=== PATIENT | female | born 1985 | race Caucasian/White ===

== ENCOUNTER 2019-03-13 16:43 | Emergency (ER) | payer OTHER ==
--- NOTE | 2019-03-13 16:54 | ED Physician Documentation ---
PD HPI CHEST PAIN - Stated complaint Stated Complaint: CHEST PX/ARM NUMBNESS - Chief complaint Chief Complaint: Cardiac - History obtained from History obtained from: Patient - History of Present Illness Timing - onset: Other (This is a relatively healthy 33-year-old woman with several family members on both sides who of coronary disease, the earliest that was at 60. She is had 2 weeks of on and off chest pain radiating to both arms, sharp and burning sensation with more back soreness today. There is been no shortness of breath, pedal edema or calf pain. She has not traveled recently. She has a Mirena IUD in place, no other control. The start of it coincided with a diagnosis of cancer in her mother which may be causative she thinks. She has a history of preeclampsia necessitating antihypertensives but she is not on any blood pressure medication now.) Review of Systems Ten Systems: 10 systems reviewed and negative Constitutional: denies: Fever, Chills Cardiac: reports: Chest pain / pressure. denies: Palpitations, Pedal edema, Calf pain Respiratory: denies: Dyspnea, Cough PD PAST MEDICAL HISTORY - Past Medical History Past Medical History: Yes Cardiovascular: Hypertension (post preeclampsia/HTN) - Allergies Allergies/Adverse Reactions: Allergies Allergy/AdvReac Type Severity Reaction Status Date / Time codeine Allergy Emesis Verified 03/13/19 16:57 Sulfa (Sulfonamide Allergy Unknown Verified 03/13/19 16:57 Antibiotics) - Social History Does the pt have substance abuse?: No - Family History Family history: reports: Non contributory PD ED PE NORMAL - Vitals Vital signs reviewed: Yes - General General: Alert and oriented X 3, No acute distress - Neuro Neuro: Alert and oriented X 3, Normal speech - Psych Psych: Normal mood, Normal affect Results - Vitals Vitals: Vital Signs - 24 hr 03/13/19 03/13/19 16:50 17:58 Temperature 36.7 C Heart Rate 93 84 Respiratory 15 14 Rate Blood Pressure 171/115 H 144/95 H O2 Saturation 100 99 Oxygen O2 Source Room air - EKG (time done) 1651 Rate: Rate (enter#) (90) Rhythm: NSR Joanna: Normal Intervals: Normal [place] QRS: Normal Ischemia: Normal ST segments, Other (Very mild T wave flattening 3 and F, also the mid precordium) Computer interpretation: Agree with computer - Labs Labs: Laboratory Tests 03/13/19 03/13/19 03/13/19 17:20 17:20 17:20 WBC 7.7 RBC 4.44 Hgb 14.6 Hct 44.2 MCV 99.5 H MCH 32.9 H MCHC 33.0 RDW 11.6 L Plt Count 211 MPV 10.2 Neut # (Auto) 5.7 Lymph # (Auto) 1.4 L [place] # (Auto) 0.5 Eos # (Auto) 0.0 Baso # (Auto) 0.0 Absolute Nucleated RBC 0.00 Nucleated RBC % 0.0 D-Dimer Sodium 139 Potassium 3.6 Chloride 100 L Carbon Dioxide 24 Anion Gap 15.0 H BUN 14 Creatinine 0.8 Estimated GFR (MDRD) 82 L Glucose 109 H Calcium 9.8 Total Bilirubin 0.8 AST 24 ALT 24 Alkaline Phosphatase 44 Troponin I < 0.04 Total Protein 9.0 H Albumin 5.2 Globulin 3.8 Albumin/Globulin Ratio 1.4 Lipase 39 Urine Color Urine Clarity Urine pH Ur Specific [place] Urine Protein Urine Glucose (UA) Urine Ketones Urine Occult Blood Urine Nitrite Urine Bilirubin Urine Urobilinogen Ur Leukocyte Esterase Ur Microscopic Review Urine Culture Comments Urine HCG, Qual 03/13/19 03/13/19 17:20 17:30 WBC RBC Hgb Hct MCV MCH MCHC RDW Plt Count MPV Neut # (Auto) Lymph # (Auto) [place] # (Auto) Eos # (Auto) Baso # (Auto) Absolute Nucleated RBC Nucleated RBC % D-Dimer < 200.0 L Sodium Potassium Chloride Carbon Dioxide Anion Gap BUN Creatinine Estimated GFR (MDRD) Glucose Calcium Total Bilirubin AST ALT Alkaline Phosphatase Troponin I Total Protein Albumin Globulin Albumin/Globulin Ratio Lipase Urine Color LIGHT YELLOW Urine Clarity CLEAR Urine pH 6.5 Ur Specific [place] <=1.005 Urine Protein NEGATIVE Urine Glucose (UA) NEGATIVE Urine Ketones NEGATIVE Urine Occult Blood TRACE-INTA Urine Nitrite NEGATIVE Urine Bilirubin NEGATIVE Urine Urobilinogen 0.2 (NORMAL) Ur Leukocyte Esterase NEGATIVE Ur Microscopic Review NOT INDICATED Urine Culture Comments NOT INDICATED Urine HCG, Qual NEGATIVE - Rads (name of study) 2v chest Radiology: EMP read contemporaneously (normal) PD MEDICAL DECISION MAKING - ED course ED course: This is a young woman with a couple weeks worth of intermittent atypical chest pain. Her EKG and biomarkers are negative. D-dimer and chest x-ray also negative with equal radial pulses. Fairly hypertensive on arrival but drifted down without particular intervention and reassurance here. Departure - Departure Disposition: 01 Home, Self Care Clinical Impression: Atypical chest pain Condition: Good Record reviewed to determine appropriate education?: Yes Health Concerns: chest pain Plan of Treatment: Evaluation here with EKG, chest x-ray, troponin, and d-dimer were without significant abnormalities Care Goals: return if symptoms worsen or change, followup with your physician on return home. Assessment: as above Instructions: ED Chest Pain NonCardiac Discharge Date/Time: 03/13/19 18:33
[2019-03-13 17:28] LABS: BASOPHILS % (AUTO) 0.4 %; EOSINOPHILS % (AUTO) 0.5 %; HGB - HEMOGLOBIN 14.6 g/dL (12.0-16.0); LYMPHOCYTES # (AUTO) 1.4 10^3/uL (1.5-3.5); LYMPHOCYTES % (AUTO) 18.6 %; MEAN CORPUSCULAR HEMOGLOBIN 32.9 pg (27.0-31.0); MEAN CORPUSCULAR VOLUME 99.5 fL (81.0-99.0); MEAN PLATELET VOLUME 10.2 fL (7.9-10.8); MONOCYTES # (AUTO) 0.5 10^3/uL (0.0-1.0); MONOCYTES % (AUTO) 6.1 %; NEUTROPHILS # (AUTO) 5.7 10^3/uL (1.5-6.6); PLT - PLATELET COUNT 211 10^3/uL (130-450); RED BLOOD COUNT 4.44 10^6/uL (4.20-5.40); RED CELL DISTRIBUTION WIDTH 11.6 % (12.0-15.0); WHITE BLOOD COUNT 7.7 x10^3/uL (4.8-10.8)
[2019-03-13 17:40] LABS: BILIRUBIN,URINE NEGATIVE (NEGATIVE); GLUCOSE, URINE (UA) NEGATIVE (NEGATIVE); KETONES,URINE (UA) NEGATIVE (NEGATIVE); LEUKOCYTE ESTERASE, URINE NEGATIVE (NEGATIVE); NITRITE,URINE NEGATIVE (NEGATIVE); OCCULT BLOOD,URINE TRACE-INTA (NEGATIVE); PH,URINE 6.5 PH (5.0-7.5); PROTEIN,URINE NEGATIVE (NEGATIVE); UROBILINOGEN,URINE 0.2 (NORMAL) E.U./dL (NORMAL)
[2019-03-13 17:42] LABS: ALBUMIN 5.2 g/dL (3.2-5.5); ALBUMIN/GLOBULIN RATIO 1.4 (1.0-2.2); BILIRUBIN,TOTAL 0.8 mg/dL (0.2-1.0); CALCIUM 9.8 mg/dL (8.5-10.3); CREATININE 0.8 mg/dL (0.4-1.0)
[2019-03-13 17:43] LABS: CLARITY,URINE CLEAR (CLEAR); HCG UR QUAL NEGATIVE
[2019-03-13 17:59] VITALS: BP 144/95
--- NOTE | 2019-03-13 18:20 | XRAY Report ---
Reason: chest pain Procedure Date: 03/13/2019 Accession Number: [id number] / [id number] Procedure: XR - Chest 2 View X-Ray CPT Code: 91188 FULL RESULT: EXAM: CHEST RADIOGRAPHY EXAM DATE: 03/13/2019 05:37 PM. CLINICAL HISTORY: Chest pain. COMPARISON: None. TECHNIQUE: 2 views. FINDINGS: Lungs/Pleura: No dense consolidation. No large effusion or pneumothorax. No pulmonary edema. Mediastinum: Heart and mediastinal contours are unremarkable. Other: None. IMPRESSION: No acute radiographic pulmonary abnormalities. [facility]
== END 2019-03-13 18:33 | disposition home or self-care (01) ==
LOC: ED 16:43
DX: R07.89 Other chest pain (principal)
CPT/HCPCS: 36415; 71046; 80053; 81001; 81003; 81025; 83690; 84484; 85025; 85379; 87086; 93005; 99283